=== PATIENT | female | born 1945 | race Caucasian/White ===

== ENCOUNTER → 2016-08-03 | Outpatient (CLI) | payer MEDICARE, OTHER ==
[~2016-08-03] MED LIST: HYDROCHLOROTH12.5 M3 PO; LISINOPRIL40 MG PO; MULTIPLE VITAMI1 TA3 PO; NORVASC10 MG PO; PRILOSEC20 M1 PO; SERTRALINE HYDR25 MG PO; VITAMIN D32000 UNIT PO
[2016-08-03 12:57] LABS: BASO % 0.5 % (0.0-1.0); EOS # 0.1 10*3/uL (0.0-0.4); EOS % 1.6 % (1.0-4.0); HEMATOCRIT 33.1 % (37.0-47.0); HEMOGLOBIN 11.2 g/dl (12.0-16.0); LYMPH # 0.8 10*3/uL (1.3-4.4); LYMPH % 17.6 % (27.0-41.0); MEAN CELL VOLUME 93.8 fl (81.0-99.0); MEAN CORPUSCULAR HGB 31.7 pg (27.0-31.0); MEAN CORPUSCULAR HGB CONC 33.8 g/dl (33.0-37.0); MEAN PLATELET VOLUME 10.7 fl (9.6-12.3); MONO # 0.5 10*3/uL (0.1-1.0); MONO % 11.5 % (3.0-9.0); NEUT # 2.9 10*3/uL (2.3-7.9); NEUT % 68.1 % (47.0-73.0); PLATELET COUNT AUTOMATED 160 10*3/uL (130-400); RED BLOOD COUNT 3.53 10*6/uL (4.10-5.10); RED CELL DISTRI WIDTH 14.3 % (0-14.5); WHITE BLOOD COUNT 4.3 10*3/uL (4.8-10.8)
[2016-08-03 13:30] LABS: IRON 40 ug/dL (50-170); IRON SATURATION 12 %; UIBC 281 ug/dL (110-365)
[2016-08-03 14:08] LABS: FERRITIN 124.7 ng/mL (10.0-291.0)
[2016-08-03 14:09] LABS: FOLIC ACID 7.96 ng/mL (>5.38)
== END | disposition home or self-care (01) ==
LOC: LAB 12:30
PROVIDERS: Family Medicine
DX: D64.9 Anemia, unspecified (principal); E53.9 Vitamin B deficiency, unspecified; R68.89 Other general symptoms and signs

== ENCOUNTER → 2017-03-01 | Outpatient (CLI) | payer MEDICARE, OTHER ==
[2017-03-01 09:19] LABS: BILIRUBIN NEGATIVE (NEGATIVE); BLOOD TRACE-INTACT (NEGATIVE); CLARITY CLEAR (CLEAR); COLOR YELLOW (YELLOW); GLUCOSE NEGATIVE (NEGATIVE); KETONE NEGATIVE (NEGATIVE); LEUKO ESTERASE 2+ (NEGATIVE); NITRITE NEGATIVE (NEGATIVE); SPECIFIC GRAVITY 1.025 (1.005-1.030); UROBILINOGEN 0.2 E.U./dl (0.2-1.0)
[2017-03-01 09:24] LABS: BASO % 0.2 % (0.0-1.0); EOS # 0.1 10*3/uL (0.0-0.4); EOS % 1.9 % (1.0-4.0); HEMATOCRIT 32.7 % (37.0-47.0); HEMOGLOBIN 10.7 g/dl (12.0-16.0); LYMPH # 1.1 10*3/uL (1.3-4.4); LYMPH % 25.6 % (27.0-41.0); MEAN CELL VOLUME 96.5 fl (81.0-99.0); MEAN CORPUSCULAR HGB 31.6 pg (27.0-31.0); MEAN CORPUSCULAR HGB CONC 32.7 g/dl (33.0-37.0); MEAN PLATELET VOLUME 10.9 fl (9.6-12.3); MONO # 0.6 10*3/uL (0.1-1.0); MONO % 13.2 % (3.0-9.0); NEUT # 2.4 10*3/uL (2.3-7.9); NEUT % 57.9 % (47.0-73.0); PLATELET COUNT AUTOMATED 162 10*3/uL (130-400); RED BLOOD COUNT 3.39 10*6/uL (4.10-5.10); RED CELL DISTRI WIDTH 14.4 % (0-14.5); WHITE BLOOD COUNT 4.2 10*3/uL (4.8-10.8)
[2017-03-01 09:52] LABS: ALBUMIN 2.6 gm/dl (3.1-4.5); ALKALINE PHOSPHATASE 33 U/L (45-117); CHLORIDE 108 mmol/L (98-107); CREATININE 0.97 mg/dL (0.55-1.02); POTASSIUM 3.6 mmol/L (3.5-5.1); SGOT/AST 11 IU/L (3-35); SGPT/ALT 19 U/L (12-78); SODIUM 140 mmol/L (136-145); TOTAL PROTEIN 9.6 gm/dL (6.4-8.2)
[2017-03-01 09:53] LABS: BUN 24 mg/dl (7-24)
[2017-03-01 10:12] LABS: BACTERIA 2+; EPITHELIAL CELLS 16-20; MUCOUS 2+; WBC 16-20 wbc/hpf (0-5)
== END ==
LOC: LAB 08:43
PROVIDERS: Orthopaedic Surgery
DX: Z01.818 Encounter for other preprocedural examination (principal); K40.90 Unilateral inguinal hernia, without obstruction or gangrene, not specified as recurrent; M17.12 Unilateral primary osteoarthritis, left knee; I48.91 Unspecified atrial fibrillation

== ENCOUNTER → 2017-03-04 | Outpatient (CLI) | payer MEDICARE, OTHER ==
[2017-03-04 07:57] LABS: INTERNATIONAL NORM RATIO 4.2 (2.0-3.5)
== END | disposition home or self-care (01) ==
LOC: LAB 07:09
PROVIDERS: Internal Medicine
DX: M17.12 Unilateral primary osteoarthritis, left knee (principal); Z01.812 Encounter for preprocedural laboratory examination; Z01.810 Encounter for preprocedural cardiovascular examination; I48.91 Unspecified atrial fibrillation; Z79.01 Long term (current) use of anticoagulants

== ENCOUNTER → 2017-03-13 | Outpatient (CLI) | payer MEDICARE, OTHER | END | disposition home or self-care (01) | LOC: LAB 07:19 | DX: I48.91 Unspecified atrial fibrillation (principal); Z79.01 Long term (current) use of anticoagulants ==

== ENCOUNTER → 2017-03-15 | Outpatient (CLI) | payer MEDICARE, OTHER ==
[2017-03-15 08:28] LABS: INTERNATIONAL NORM RATIO 1.2 (2.0-3.5)
== END | disposition home or self-care (01) ==
LOC: LAB 07:18
PROVIDERS: Internal Medicine
DX: I48.91 Unspecified atrial fibrillation (principal); Z79.01 Long term (current) use of anticoagulants

== ENCOUNTER → 2017-03-18 | Outpatient (CLI) | payer MEDICARE, OTHER ==
[2017-03-18 08:16] LABS: BASO % 0.4 % (0.0-1.0); EOS % 0.9 % (1.0-4.0); HEMATOCRIT 32.6 % (37.0-47.0); HEMOGLOBIN 11.1 g/dl (12.0-16.0); LYMPH # 1.6 10*3/uL (1.3-4.4); LYMPH % 35.6 % (27.0-41.0); MEAN CELL VOLUME 93.4 fl (81.0-99.0); MEAN CORPUSCULAR HGB 31.8 pg (27.0-31.0); MEAN PLATELET VOLUME 11.1 fl (9.6-12.3); MONO # 0.5 10*3/uL (0.1-1.0); MONO % 11.6 % (3.0-9.0); NEUT # 2.3 10*3/uL (2.3-7.9); NEUT % 50.8 % (47.0-73.0); PLATELET COUNT AUTOMATED 181 10*3/uL (130-400); RED BLOOD COUNT 3.49 10*6/uL (4.10-5.10); RED CELL DISTRI WIDTH 14.4 % (0-14.5); WHITE BLOOD COUNT 4.5 10*3/uL (4.8-10.8)
[2017-03-18 08:39] LABS: IRON 52 ug/dL (50-170); TOTAL IRON BINDING CAPACITY 334 ug/dl (250-450)
[2017-03-19 08:12] LABS: RHEUMATOID ARTHRITIS FACTOR <10.0 IU/mL (0.0-13.9)
[2017-03-20 07:07] LABS: CCP ANTIBODIES IGG/IGA 4 units (0-19)
== END ==
LOC: LAB 07:40
PROVIDERS: Family Medicine
DX: I10 Essential (primary) hypertension (principal); D64.9 Anemia, unspecified; E78.4 Other hyperlipidemia; I48.91 Unspecified atrial fibrillation; Z79.01 Long term (current) use of anticoagulants

== ENCOUNTER 2017-07-27 21:29 | Inpatient (IN) | payer MEDICARE, OTHER ==
[2017-07-27] VITALS (15 sets, daily range): BP systolic 66–169; BP diastolic 25–122
[~2017-07-27] VITALS: Ht 167.6 cm; Wt 84.1 kg
[~2017-07-27 21:29] MED LIST changes: +MULTIPLE VITAM1 EAC1 PO; -MULTIPLE VITAMI1 TA3 PO
[2017-07-27 22:00] LABS: ABG BASE EXCESS -0.7 mmol/L (-2.0-2.0); ABG HCO3 22.8 mmol/l (22-26); ABG O2 SATURATION 93.1 % (95-97); ARTERIAL BLOOD GAS PCO2 38.9 mmHg (35-45); ARTERIAL BLOOD GAS PH 7.396 (7.35-7.45); ARTERIAL BLOOD GAS PO2 75.1 mmHg (80-90)
[2017-07-27 22:28] LABS: HEMATOCRIT 34.9 % (37.0-47.0); MEAN CELL VOLUME 100.3 fl (81.0-99.0); MEAN CORPUSCULAR HGB 31.6 pg (27.0-31.0); MEAN CORPUSCULAR HGB CONC 31.5 g/dl (33.0-37.0); MEAN PLATELET VOLUME 11.9 fl (9.6-12.3); NUCLEATED RED BLOOD CELL 2.1 % (0.0-0.0); PLATELET COUNT AUTOMATED 86 10*3/uL (130-400); RED BLOOD COUNT 3.48 10*6/uL (4.10-5.10); RED CELL DISTRI WIDTH 16.4 % (0-14.5)
[2017-07-27 22:41] LABS: ACT PARTIAL THROMBO TIME 26.9 SECONDS (20.8-31.5); INTERNATIONAL NORM RATIO 1.1 (2.0-3.5)
[2017-07-27 22:46] LABS: ALBUMIN 2.1 gm/dl (3.1-4.5); CREATININE 1.14 mg/dL (0.55-1.02); POTASSIUM 4.3 mmol/L (3.5-5.1); TOTAL PROTEIN 5.8 gm/dL (6.4-8.2)
[2017-07-27 22:47] LABS: TROPONIN I 0.027 ng/ml (<0.045)
[2017-07-27 23:00] LABS: THYROID STIM HORMONE (HS) 0.036 uIU/ml (0.358-4.75)
[2017-07-27 23:08] LABS: BASOPHILS 1 % (0-1); TOTAL CELLS COUNTED 100 #CELLS
[2017-07-27 23:09] LABS: BURR CELLS FEW; PLATELET SUFFICIENCY LOW (NORMAL); POLYCHROMASIA SLIGHT
[2017-07-27 23:11] LABS: WHITE BLOOD COUNT 0.9 10*3/uL (4.8-10.8)
[2017-07-27 23:23] LABS: BILIRUBIN NEGATIVE (NEGATIVE); BLOOD NEGATIVE (NEGATIVE); CLARITY CLEAR (CLEAR); COLOR YELLOW (YELLOW); GLUCOSE NEGATIVE (NEGATIVE); KETONE NEGATIVE (NEGATIVE); LEUKO ESTERASE NEGATIVE (NEGATIVE); NITRITE NEGATIVE (NEGATIVE); PH 5.5 (5.0-9.0); SPECIFIC GRAVITY 1.025 (1.005-1.030); UROBILINOGEN 0.2 E.U./dl (0.2-1.0)
[2017-07-27 23:50] LABS: BACTERIA TRACE; RBC 0-2 rbc/hpf (0-2)
[2017-07-28] VITALS (9 sets, daily range): BP systolic 74–105; BP diastolic 33–52
[2017-07-28] MEDS ORDERED: AMIODARONE HCL200 MG PO (01:43)
[2017-07-28] MEDS ORDERED: CALCIUM CARBON600 M4 PO (01:44)
[2017-07-28] MEDS ORDERED: CYCLOBENZAPRINE5 M3 PO (01:45)
[2017-07-28] MEDS ORDERED: ELIQUIS2.5 M1 PO (01:48)
[2017-07-28] MEDS ORDERED: DECADRON4 M2 PO (01:48)
[2017-07-28] MEDS ORDERED: ALLERGY RELIE15.8 ML NAS (01:50)
[2017-07-28] MEDS ORDERED: LISINOPRIL30 MG PO (01:51)
[2017-07-28] MEDS ORDERED: LEVOFLOXACIN500 MG PO (01:51)
[2017-07-28] MEDS ORDERED: CLARITIN10 MG PO (01:52)
[2017-07-28] MEDS ORDERED: MARINOL5 MG PO (01:53)
[2017-07-28] MEDS ORDERED: METOPROLOL25 MG PO (01:54)
[2017-07-28] MEDS ORDERED: MIRALAX POWDER255 G1 PO (01:55)
[2017-07-28] MEDS ORDERED: POTASSIUM CHLO10 ME4 PO (01:55)
[2017-07-28] MEDS ORDERED: MS CONTIN15 MG PO (01:56)
[2017-07-28] MEDS ORDERED: NEURONTIN100 MG PO (01:57)
[2017-07-28] MEDS ORDERED: PEPCID20 MG PO (01:59)
[2017-07-28] MEDS ORDERED: PROMETHAZINE25 MG R (02:00)
[2017-07-28] MEDS ORDERED: PROTONIX40 MG PO (02:01)
[2017-07-28] MEDS ORDERED: REVLIMID25 MG PO (02:02)
[2017-07-28] MEDS ORDERED: VALACYCLOVIR500 M1 PO (02:04)
[2017-07-28] MEDS ORDERED: ZOFRAN ODT8 M1 PO (02:05)
[2017-07-28] MEDS ORDERED: LORAZEPAM2 MG/1 M1 IV ×2 (11:44)
[2017-07-28] MEDS ORDERED: ATROPINE SULFATE2 M2 SL ×2 (11:44)
[2017-07-28] MEDS ORDERED: MORPHINE SU4 MG/1 M3 IV (11:44)
== END 2017-07-28 12:28 | disposition hospice, home (50) | DRG 871 ==
LOC: ED 21:29 → EDHOLD 23:51 → 4E 23:51 → ICCU 23:53 → 4E 07-28 09:57
PROVIDERS: Emergency Medicine Emergency Medical Services
PROC: B548ZZA Ultrasonography of Superior Vena Cava, Guidance (ICD-10-PCS; principal; 2017-07-27)
PROC: 5A09357 Assistance with Respiratory Ventilation, Less than 24 Consecutive Hours, Continuous Positive Airway Pressure (ICD-10-PCS; principal; 2017-07-27)
PROC: 02HV33Z Insertion of Infusion Device into Superior Vena Cava, Percutaneous Approach (ICD-10-PCS; principal; 2017-07-27)
DX: A41.9 Sepsis, unspecified organism (principal); R65.21 Severe sepsis with septic shock; J96.00 Acute respiratory failure, unspecified whether with hypoxia or hypercapnia; E43 Unspecified severe protein-calorie malnutrition; J18.1 Lobar pneumonia, unspecified organism; D61.818 Other pancytopenia; C90.00 Multiple myeloma not having achieved remission; I48.0 Paroxysmal atrial fibrillation; R73.9 Hyperglycemia, unspecified; E66.09 Other obesity due to excess calories; D53.9 Nutritional anemia, unspecified; I10 Essential (primary) hypertension; K44.9 Diaphragmatic hernia without obstruction or gangrene; Z66 Do not resuscitate; Z51.5 Encounter for palliative care; Z96.1 Presence of intraocular lens; Z88.6 Allergy status to analgesic agent; Z88.5 Allergy status to narcotic agent; Z98.49 Cataract extraction status, unspecified eye; Z88.8 Allergy status to other drugs, medicaments and biological substances; Z79.899 Other long term (current) drug therapy; Z68.31 Body mass index [BMI] 31.0-31.9, adult

== ENCOUNTER 2017-07-28 13:23 | Inpatient (IN) | payer OTHER ==
[~2017-07-28 13:23] MED LIST changes: +ALLERGY RELIE15.8 ML NAS; +AMIODARONE HCL200 MG PO; +ATROPINE SULFATE2 M2 SL; +CALCIUM CARBON600 M4 PO; +CLARITIN10 MG PO; +CYCLOBENZAPRINE5 M3 PO; +DECADRON4 M2 PO; +ELIQUIS2.5 M1 PO; +LEVOFLOXACIN500 MG PO; +LISINOPRIL30 MG PO; +LORAZEPAM2 MG/1 M1 IV; +MARINOL5 MG PO; +METOPROLOL25 MG PO; +MIRALAX POWDER255 G1 PO; +MORPHINE SU4 MG/1 M3 IV; +MS CONTIN15 MG PO; +NEURONTIN100 MG PO; +PEPCID20 MG PO; +POTASSIUM CHLO10 ME4 PO; +PROMETHAZINE25 MG R; +PROTONIX40 MG PO; +REVLIMID25 MG PO; +VALACYCLOVIR500 M1 PO; +ZOFRAN ODT8 M1 PO
[2017-07-28 16:00] VITALS: BP 43/17
[2017-07-28 20:00] VITALS: BP 59/30
[2017-07-29] VITALS: BP 40/15
[2017-07-29 08:00] VITALS: BP 49/19
== END 2017-07-29 11:03 | disposition expired | DRG 871 ==
LOC: 4E 13:23
DX: A41.9 Sepsis, unspecified organism (principal); R65.21 Severe sepsis with septic shock; J96.01 Acute respiratory failure with hypoxia; E43 Unspecified severe protein-calorie malnutrition; J18.9 Pneumonia, unspecified organism; E87.2 Acidosis; D61.818 Other pancytopenia; C90.00 Multiple myeloma not having achieved remission; I48.0 Paroxysmal atrial fibrillation; R50.81 Fever presenting with conditions classified elsewhere; R73.9 Hyperglycemia, unspecified; E66.09 Other obesity due to excess calories; K44.9 Diaphragmatic hernia without obstruction or gangrene; Z66 Do not resuscitate; Z51.5 Encounter for palliative care; Z96.1 Presence of intraocular lens; I10 Essential (primary) hypertension; Z74.01 Bed confinement status; Z98.42 Cataract extraction status, left eye; Z98.41 Cataract extraction status, right eye; Z88.6 Allergy status to analgesic agent; Z88.8 Allergy status to other drugs, medicaments and biological substances; Z79.899 Other long term (current) drug therapy; Z79.01 Long term (current) use of anticoagulants; Z68.29 Body mass index [BMI] 29.0-29.9, adult